=== PATIENT | male | born 1985 | race Two or more races ===

== ENCOUNTER 2024-12-02 01:26 | Emergency (ER) | payer MEDICAID, SELFPAY ==
[2024-12-02 01:35] VITALS: BP 149/101; PULSE 97; RESP 16; TEMP 36.4; O2SAT 98; BMI 24.4
--- NOTE | 2024-12-02 01:37 | ED_ITS ---
Discharge Plan Disposition Patient Disposition: Home, Self-Care Condition: Good Prescriptions Prescriptions: No Action clonazepam 0.5 mg tablet 0.5 mg PO HS PRN Rx Instructions: administer 30 minutes before bedtime Referrals Follow up/Referrals: Provider,Referral, [Primary Care Provider] - See instructions Activity Restrictions/Add. Instructions Additional Instructions/Restrictions: You were evaluated in the ER and are appropriate for discharge at this time. Continue any home medications as prescribed. Follow-up with your primary care doctor. Return to the ER with any new, worsening, or otherwise concerning symptoms. Clinical Impressions Clinical Impression: Medical clearance for incarceration Print Language Print Language: Occitan Discharge ED Provider: Nel Reinoso Adult HPI General Stated complaint: medical clearance Time Seen by Provider: 12/02/24 01:28 History of Present Illness HPI narrative: 39-year-old male who reports a history of anxiety prescribed clonazepam presents to the ER with law enforcement for medical clearance. Patient reports he was involved in a misunderstanding earlier. He does not provide additional details. He states he has no medical complaints or concerns tonight. Thorough review of systems was negative except he briefly stated he had face pain but then retracted that statement and stated he does not want to talk about it. He reports he drinks once a week, does smoke tobacco, smokes weed and wishes he could use it more, denies other illicit drugs. He reports he would not be in the ER tonight if he had not been brought in by the officers. Related Data Home Medications ?Medication ?Instructions ?Recorded ?Confirmed clonazepam 0.5 mg tablet 0.5 mg PO HS PRN 09/27/20 09/27/20 Allergies Allergy/AdvReac Type Severity Reaction Status Date / Time No Known Allergies Allergy Verified 09/27/20 18:01 [facility] Disclaimer: The information contained in this section may have been updated after the patient was seen, as this information can be updated by other users. Social History Smoking Status: Current every day smoker alcohol intake: current current occupational status: employed Travel in the last 8 weeks?: None Other Medical History Have you received the Pneumonia Vaccine: No ROS Obtained: Yes Systems reviewed as appropriate & no additional complaints except as documented Constitutional Constitutional: Denies chills, Denies fever(s), Denies headache(s) and Denies weakness Eyes Eyes: Denies blurry vision ENT Ears, Nose, Mouth, and Throat: Denies headache(s), Denies nasal congestion, Denies neck pain and Denies sore throat Cardiovascular Cardiovascular: Denies chest pain and Denies dyspnea Respiratory Respiratory: Denies cough and Denies dyspnea Gastrointestinal Gastrointestingal: Denies abdominal pain, diarrhea, nausea or vomiting Genitourinary Male Genitourinary: Denies hematuria Comments: denies dysuria Musculoskeletal Musculoskeletal: Denies arthralgias, Denies back pain, Denies neck pain, Denies numbness and Denies tingling Neurologic Neurologic: Denies headache(s), Denies numbness, Denies tingling and Denies weakness Physical Exam General General appearance: alert and in no apparent distress Head Head exam: normocephalic and other (Less than 1 cm superficial abrasion on the forehead, hemostatic, not gaping) Eye Eye exam: Present PERRL and EOMI ENT ENT exam: Present mucous membranes moist Neck Neck exam: Present normal inspection and full ROM Chest Chest inspection: Present symmetric chest wall rise Respiratory Respiratory exam: Present normal lung sounds bilaterally; Absent respiratory distress, wheezes or stridor Cardiovascular Cardiovascular exam: Present regular rate and normal rhythm Abdominal Exam Abdominal exam: Present soft; Absent distention or tenderness Extremities Exam Extremities exam: Present full ROM; Absent edema or joint swelling Back Exam Back exam: Absent tenderness, CVA tenderness (R) or CVA tenderness (L) Neurological Exam Neurological exam: Present alert, oriented X3, CN II-XII intact and normal gait; Absent motor sensory deficit Psychiatric Psychiatric exam: Present normal affect and normal mood Skin Skin exam: Present warm and dry Medical Decision Making Medical Records Medical records reviewed: Yes I reviewed the patient's medical records. Screening: Per USPSTF and CDC recommendations, given the prevalence of disease in our region, it is our hospital?s policy to screen for HIV and viral Hepatitis for all patients aged 18 and over and those with ongoing risk factors. MR Comment: Review of other records demonstrates patient has been seen for recurrent sinusitis back in 2020. Patient was given a dose of Rocephin in the office. [place] Inquiry Pt receiving controlled substance: No Medical Decision Narrative: In summary, 39-year-old male presents to the ER with law enforcement for medical clearance. Patient reports no complaints or concerns and states he would not otherwise be in the ER tonight if he had not been brought in by law enforcement. Thorough history and review of systems is reassuring. Thorough physical exam is benign aside from small superficial abrasion on the forehead which does not require treatment at this time. No other abnormalities identified on exam. Patient is GCS 15, neurologically intact throughout, cardiopulmonary exam and abdominal exam benign. Since patient has no other complaints or concerns I believe he is appropriate for discharge at this time. Patient was given instructions on symptomatic management, follow up instructions, and return precautions for the emergency department. Patient indicated understanding and was discharged in stable condition with law enforcement. Critical Care Critical Care Time Critical Care Time: No
[2024-12-02 01:39] VITALS: BP 148/88; PULSE 90; RESP 16; TEMP 36.4; O2SAT 98
== END 2024-12-02 01:44 | disposition home or self-care (01) ==
PROVIDERS: Emergency Provider Emergency Medicine
DX: Z00.8 Encounter for other general examination (principal)
CPT/HCPCS: 99281